=== PATIENT | male | born 1950 | race Caucasian/White ===

== ENCOUNTER 2019-11-06 11:26 | Inpatient (IN) | payer OTHER ==
[~2019-11-06] VITALS: Ht 172.7 cm; Wt 105.0 kg
[~2019-11-06 11:26] MED LIST: ATEN25TA PO; ATOR20TA66 PO; HYDR12.5 PO; LISI2.5T2 PO; TICA90TA PO
[2019-11-06] MEDS ORDERED: ROSU10TA2 PO (12:24)
[2019-11-06] MEDS ORDERED: ASPI-1265 PO (12:24)
[2019-11-06] MEDS ORDERED: LOSA25TA96 PO (12:24)
[2019-11-06] MEDS ORDERED: AMLO2.5T2 PO (12:24)
[2019-11-06] MEDS ORDERED: OMEP40CA13 PO (12:24)
[2019-11-06] MEDS ORDERED: normal saline 1000ML IV soln IVB ONE (12:30)
[2019-11-06] MEDS ORDERED: enoxaparin 100mg/ml syringe SUBCUT ONE (12:30)
[2019-11-06] MEDS: metoprolol tartrate 1mg/ml inj IV SCH ×4 (12:48→13:25)
[2019-11-06 12:55] LABS: BASOPHILS # (AUTO) 0.1 X10'3 (0-0.2); EOSINOPHILS # (AUTO) 0.1 X10'3 (0-0.9); HEMATOCRIT 42.8 % (42.0-52.0); HEMOGLOBIN 15.2 g/dl (14.0-17.9); LYMPHOCYTES % (AUTO) 13.9 % (21-51); MEAN CORPUSCULAR HEMOGLOBIN 32.8 PG (27.0-31.0); MEAN CORPUSCULAR HGB CONC 35.6 g/dL (33.0-36.5); MEAN CORPUSCULAR VOLUME 92.2 FL (78-98); MEAN PLATELET VOLUME 8.2 FL (7.4-10.4); MONOCYTES # (AUTO) 0.4 X10'3 (0-0.9); MONOCYTES % (AUTO) 5.1 % (2-12); NEUTROPHILS # (AUTO) 5.8 X10'3 (1.8-7.7); PLATELET COUNT 212 X10'3 (140-440); RED BLOOD COUNT 4.64 X10'6 (4.70-6.10); RED CELL DISTRIBUTION WIDTH 13.6 % (11.5-14.5); WHITE BLOOD COUNT 7.4 X10'3 (4.5-11.0)
--- NOTE | 2019-11-06 13:03 | NUR ---
PT TO XRAY VIA WHEELCHAIR
[2019-11-06 13:07] LABS: ALANINE AMINOTRANSFERASE 54 U/L (12-78); ALBUMIN/GLOBULIN RATIO 1.2 (1.1-1.5); ALKALINE PHOSPHATASE 90 IU/L (46-116); ANION GAP 12 (8-16); ASPARTATE AMINO TRANSFERASE 16 U/L (10-37); BILIRUBIN,TOTAL 0.5 MG/DL (0.1-1.0); BLOOD UREA NITROGEN 11 MG/DL (7-18); BUN/CREATININE RATIO 13.6 (5.4-32.0); CALCIUM 8.7 MG/DL (8.5-10.1); CHLORIDE 106 MMOL/L (99-107); CREATININE 0.81 MG/DL (0.60-1.10); GLUCOSE 96 MG/DL (70-104); POTASSIUM 3.8 MMOL/L (3.5-5.1); SODIUM 141 MMOL/L (135-145); TOTAL CARBON DIOXIDE 22.7 MMOL/L (24-32); TOTAL PROTEIN 7.3 G/DL (6.4-8.2); eGFR > 90 ML/MIN
[2019-11-06 13:14] LABS: MAGNESIUM 1.8 MG/DL (1.5-2.4)
--- NOTE | 2019-11-06 13:30 | NUR ---
Second dose of Lopressor IV given and patient's heart rate decreased to 55 sinus amira.
[2019-11-06 13:42] LABS: PARTIAL THROMBOPLASTIN TIME 29 SECONDS (22-32)
[2019-11-06] MEDS ORDERED: magnesium Cl slow-release 64mg tablet PO PRN (14:00)
[2019-11-06] MEDS ORDERED: magnesium 4gm in 100ml NS 100 ML IV PRN (14:00)
[2019-11-06] MEDS ORDERED: magnesium 2GM in 50ml NS 50 ML IV PRN (14:00)
[2019-11-06] MEDS ORDERED: potassium Cl 20 mEq SR tablet PO PRN ×2 (14:00)
[2019-11-06] MEDS ORDERED: morphine 2 MG/ML inj. syringe IV PRN (14:00)
[2019-11-06] MEDS ORDERED: ondansetron/PF 4mg/2ml inj IV PRN (14:00)
[2019-11-06] MEDS ORDERED: acetaminophen 325mg tablet PO PRN (14:00)
[2019-11-06] MEDS ORDERED: potassium CL 10mEq/100ml bag 100 ML IV PRN ×2 (14:00)
[2019-11-06] MEDS ORDERED: metoprolol tartrate 1mg/ml inj IV ONE (14:20)
[2019-11-06 15:00] VITALS: BP 144/87
--- NOTE | 2019-11-06 15:00 | NUR ---
Patient arrived to room 3023A from ED via gurney. Patient walked from [facility] to bed and ambulated well. Vital signs are BP 152/84, 99% on room arm, RR of 16, HR of 67 and pain 1/10. Bed locked and lowered, nonskid socks on, call light in reach, and in no acute distress. Will continue to monitor.
[2019-11-06 15:10] VITALS: BP 152/84
--- NOTE | 2019-11-06 16:07 | NUR ---
Paged Dr. Stevenson regarding second troponin. PAGER ID: [phone] MESSAGE: [phone]. Vicente Garcia. Second trop 0.28. Thank you. Nitza ROQUE x [phone]
--- NOTE | 2019-11-06 18:33 | NUR ---
Problems reprioritized. Patient report given, questions answered & plan of care reviewed with JUDE Young. Patient stable at transfer of care.
--- NOTE | 2019-11-06 18:41 | NUR ---
END OF DAY NOTE Patient arrived to unit at 1500 and was able to ambulate from [facility] to bed. Vital signs were stable with no complaint of chest pain. Echocardiogram was done at the bedside. Dr. Wu came in to consult patient and reported that he would be taking him for an angiogram tomorrow morning at 0800 and that he would go for the right radial. Patient's troponins were 0.17, 0.28. MD notified. Patient stable at transfer of care.
[2019-11-06 19:00] VITALS: BP 151/80
[2019-11-06] MEDS: K and/or MAG REPLACEMENT MC SCH (20:00)
[2019-11-06] MEDS ORDERED: temazepam 15mg capsule PO PRN (21:00)
[2019-11-06 23:00] VITALS: BP 127/80
[2019-11-07] VITALS (13 sets, daily range): BP systolic 117–155; BP diastolic 69–87
[2019-11-07 06:22] LABS: BASOPHILS % (AUTO) 0.7 % (0-1); EOSINOPHILS # (AUTO) 0.2 X10'3 (0-0.9); EOSINOPHILS % (AUTO) 2.6 % (0-6); HEMATOCRIT 41.6 % (42.0-52.0); HEMOGLOBIN 14.9 g/dl (14.0-17.9); LYMPHOCYTES # (AUTO) 1.1 X10'3 (1.1-4.8); LYMPHOCYTES % (AUTO) 17.3 % (21-51); MEAN CORPUSCULAR HEMOGLOBIN 33.1 PG (27.0-31.0); MEAN CORPUSCULAR HGB CONC 35.8 g/dL (33.0-36.5); MEAN CORPUSCULAR VOLUME 92.5 FL (78-98); MEAN PLATELET VOLUME 8.1 FL (7.4-10.4); MONOCYTES # (AUTO) 0.4 X10'3 (0-0.9); NEUTROPHILS # (AUTO) 4.6 X10'3 (1.8-7.7); NEUTROPHILS % (AUTO) 73.4 % (42-75); PLATELET COUNT 207 X10'3 (140-440); RED CELL DISTRIBUTION WIDTH 13.5 % (11.5-14.5); WHITE BLOOD COUNT 6.3 X10'3 (4.5-11.0)
--- NOTE | 2019-11-07 06:32 | NUR ---
Patient in room PCU 3023. I have received report from JUDE Young and had the opportunity to ask questions and assume patient care.
[2019-11-07 07:10] LABS: ALBUMIN 3.8 G/DL (3.4-5.0); ANION GAP 10 (8-16); BLOOD UREA NITROGEN 12 MG/DL (7-18); BUN/CREATININE RATIO 14.1 (5.4-32.0); CALCIUM 8.5 MG/DL (8.5-10.1); CHLORIDE 106 MMOL/L (99-107); CHOLESTEROL 177 MG/DL (0-200); CREATININE 0.85 MG/DL (0.60-1.10); GLUCOSE 96 MG/DL (70-104); HDL CHOLESTEROL 22 MG/DL (35-60); LDL CHOLESTEROL 68 MG/DL (50-100); MAGNESIUM 1.9 MG/DL (1.5-2.4); POTASSIUM 3.8 MMOL/L (3.5-5.1); SODIUM 141 MMOL/L (135-145); TOTAL CARBON DIOXIDE 25.4 MMOL/L (24-32); TRIGLYCERIDES 686 MG/DL (20-135); eGFR 89 ML/MIN
[2019-11-07] MEDS: K and/or MAG REPLACEMENT MC SCH ×2 (08:00→20:00)
[2019-11-07] MEDS ORDERED: midazolam 2 mg/2 ml injection ONE ×2 (08:38→08:56)
[2019-11-07] MEDS ORDERED: heparin 1,000unit/ml 10ml vial 10 ML ONE ×2 (08:38→10:01)
[2019-11-07] MEDS ORDERED: fentaNYL/PF 50MCG/1 ML 2ML syringe ONE (08:38)
[2019-11-07] MEDS ORDERED: verapamil 2.5 mg/ml inj IV ONE (08:38)
[2019-11-07] MEDS ORDERED: LIDOcaine 1% (10mg/ml)w/preservative injection 20ml MDV ONE ×2 (08:38→09:51)
[2019-11-07] MEDS ORDERED: nitroGLYCERIN-Tridil 50MG/D5W 250 ML IV ONE (08:38)
[2019-11-07] MEDS ORDERED: iohexol 350MG/ML 100ml bottle IV ONE ×2 (08:39→09:50)
[2019-11-07] MEDS ORDERED: iohexol 350 MG/ML 50ML vial IV ONE (09:19)
[2019-11-07] MEDS ORDERED: clopidogrel 300mg tablet ONE (09:23)
[2019-11-07] MEDS ORDERED: nitroGLYCERIN 0.4mg SUBLingual tab SL ONE (09:33)
[2019-11-07] MEDS ORDERED: ondansetron/PF 4mg/2ml inj ONE (09:42)
[2019-11-07] MEDS ORDERED: atropine 0.1mg/ml 10ml syringe ONE (09:50)
[2019-11-07] MEDS ORDERED: tirofiban 5mg in NS 100mL 100 ML IV ONE (10:10)
--- NOTE | 2019-11-07 10:24 | NUR ---
Sent to Dr Stevenson PAGER ID: [phone] MESSAGE: RE: Vicente Alarcon [id number]. Pt med rec needs completion. Pt down for heart cath right now. -Kimmie [phone]
--- NOTE | 2019-11-07 10:30 | NUR ---
Pt returned to room via gurney from [employer] & transferred in to bed without difficulty. Vital signs obtained, post-op vitals initiated. Groin site assessed, no hematoma present, dressing CDI. Radial site dressing CDI, 1st release scheduled for 1130. Pedal pulses present & palpable. Pt stated understanding of need to remain flat. orders faxed to pharmacy. Tele monitor applied.
--- NOTE | 2019-11-07 11:30 | NUR ---
3 mL air released from wristband without consequence.
[2019-11-07] MEDS ORDERED: HYDROcodone/acetaminophen 5mg/325mg tablet PO PRN (11:35)
[2019-11-07] MEDS ORDERED: OXAZEpam 15mg capsule PO PRN (11:35)
[2019-11-07] MEDS ORDERED: ondansetron/PF 4mg/2ml inj IV PRN (11:35)
[2019-11-07] MEDS ORDERED: HYDROcodone/acetaminophen 10/325mg tab PO PRN (11:35)
[2019-11-07] MEDS ORDERED: proCHLORperazine 10 MG/2 ml inj IV PRN (11:35)
[2019-11-07] MEDS ORDERED: tirofiban 5mg in NS 100mL 100 ML IV SCH (11:40)
[2019-11-07] MEDS: normal saline 1000ml 1,000 ML IV SCH ×2 (11:41→15:35)
--- NOTE | 2019-11-07 16:45 | NUR ---
radial cuff removed.
--- NOTE | 2019-11-07 17:01 | NUR ---
aggrastat d/c'd after completion per written order.
--- NOTE | 2019-11-07 18:18 | NUR ---
Problems reprioritized. Patient report given, questions answered & plan of care reviewed with JUDE Young.
[2019-11-08 03:00] VITALS: BP 146/82
[2019-11-08 05:37] LABS: BASOPHILS # (AUTO) 0.1 X10'3 (0-0.2); BASOPHILS % (AUTO) 0.6 % (0-1); EOSINOPHILS # (AUTO) 0.1 X10'3 (0-0.9); EOSINOPHILS % (AUTO) 1.8 % (0-6); HEMATOCRIT 39.6 % (42.0-52.0); HEMOGLOBIN 14.2 g/dl (14.0-17.9); LYMPHOCYTES # (AUTO) 1.1 X10'3 (1.1-4.8); LYMPHOCYTES % (AUTO) 12.8 % (21-51); MEAN CORPUSCULAR HEMOGLOBIN 32.8 PG (27.0-31.0); MEAN CORPUSCULAR HGB CONC 35.8 g/dL (33.0-36.5); MEAN CORPUSCULAR VOLUME 91.7 FL (78-98); MEAN PLATELET VOLUME 8.2 FL (7.4-10.4); MONOCYTES # (AUTO) 0.5 X10'3 (0-0.9); MONOCYTES % (AUTO) 6.3 % (2-12); NEUTROPHILS # (AUTO) 6.5 X10'3 (1.8-7.7); NEUTROPHILS % (AUTO) 78.5 % (42-75); PLATELET COUNT 202 X10'3 (140-440); RED BLOOD COUNT 4.32 X10'6 (4.70-6.10); RED CELL DISTRIBUTION WIDTH 13.7 % (11.5-14.5); WHITE BLOOD COUNT 8.3 X10'3 (4.5-11.0)
[2019-11-08 05:42] LABS: ALBUMIN 3.6 G/DL (3.4-5.0); ANION GAP 10 (8-16); BLOOD UREA NITROGEN 13 MG/DL (7-18); BUN/CREATININE RATIO 15.1 (5.4-32.0); CALCIUM 8.5 MG/DL (8.5-10.1); CHLORIDE 107 MMOL/L (99-107); CREATININE 0.86 MG/DL (0.60-1.10); GLUCOSE 102 MG/DL (70-104); MAGNESIUM 1.9 MG/DL (1.5-2.4); POTASSIUM 3.9 MMOL/L (3.5-5.1); SODIUM 140 MMOL/L (135-145); TOTAL CARBON DIOXIDE 23.5 MMOL/L (24-32); eGFR 88 ML/MIN
[2019-11-08 06:00] VITALS: BP 144/80
--- NOTE | 2019-11-08 06:09 | NUR ---
Patient in room PCU 3023. I have received report from JUDE Young and had the opportunity to ask questions and assume patient care.
[2019-11-08] MEDS ORDERED: amLODIPine 2.5mg tablet PO SCH (08:00)
[2019-11-08] MEDS ORDERED: aspirin 81mg tab.chew PO SCH (08:00)
[2019-11-08] MEDS ORDERED: clopidogrel 75mg tablet PO SCH (08:00)
[2019-11-08] MEDS ORDERED: atorvastatin 20mg tablet PO SCH (08:00)
[2019-11-08] MEDS: K and/or MAG REPLACEMENT MC SCH (08:00)
[2019-11-08] MEDS ORDERED: losartan 25mg tablet PO SCH (08:00)
[2019-11-08] MEDS ORDERED: pantoprazole 40mg Tablet.DR PO SCH (08:00)
[2019-11-08] MEDS ORDERED: aspirin 325mg tablet PO SCH (08:30)
[2019-11-08 11:00] VITALS: BP 146/82
[2019-11-08] MEDS ORDERED: CLOP75TA35 PO (11:54)
--- NOTE | 2019-11-08 13:33 | NUR ---
pt discharged. IV d/c'd, tele removed, all belongings sent with pt. walked out with friend, accompanied by hospital staff. pt will make appt tomorrow with PCP. Rx sent to [facility] on .
== END 2019-11-08 13:13 | disposition home or self-care (01) | DRG 247 ==
LOC: ER 11:27 → ED HOLD 15:06 → PCU 3S 15:11
PROVIDERS: ADMIT Internal Medicine; ATTEND Internal Medicine
PROC: 4A023N7 Measurement of Cardiac Sampling and Pressure, Left Heart, Percutaneous Approach (ICD-10-PCS; principal; 2019-11-07)
PROC: 027035Z Dilation of Coronary Artery, One Artery with Two Drug-eluting Intraluminal Devices, Percutaneous Approach (ICD-10-PCS; 2019-11-07)
PROC: B2111ZZ Fluoroscopy of Multiple Coronary Arteries using Low Osmolar Contrast (ICD-10-PCS; 2019-11-07)
PROC: B2151ZZ Fluoroscopy of Left Heart using Low Osmolar Contrast (ICD-10-PCS; 2019-11-07)
DX: I21.4 Non-ST elevation (NSTEMI) myocardial infarction (principal); E78.00 Pure hypercholesterolemia, unspecified; I25.110 Atherosclerotic heart disease of native coronary artery with unstable angina pectoris; E78.5 Hyperlipidemia, unspecified; F12.90 Cannabis use, unspecified, uncomplicated; F43.10 Post-traumatic stress disorder, unspecified; R00.1 Bradycardia, unspecified; I10 Essential (primary) hypertension; K21.9 Gastro-esophageal reflux disease without esophagitis; Z79.899 Other long term (current) drug therapy; Z82.49 Family history of ischemic heart disease and other diseases of the circulatory system; Z87.442 Personal history of urinary calculi; Z95.5 Presence of coronary angioplasty implant and graft; Z79.82 Long term (current) use of aspirin; I95.9 Hypotension, unspecified
CPT/HCPCS: 93306; 93458; 96372; 96374; 99291; C9600; 36415; 71045; 80048; 80053; 80061; 83735; 83880; 84484; 85025; 85610; 85730; 87081; 93005; 99152; 99153; A4620; C1725; C1760; C1769; C1874; C1894; G0378; J0461; J1644; J1650; J2001; J2250; J2405; J3010; J3246; J3490; J7030; Q9967